=== PATIENT | female | born 1990 | race Caucasian/White ===

== ENCOUNTER → 2021-04-05 | Outpatient (CLI) | payer OTHER ==
[~2021-04-05] MED LIST: CYSTO-CONRAY II 17.2% 250ML VIAL (Q9958) As Ordered ONE
--- NOTE | 2021-04-05 17:02 | REP ---
INDICATION: RECURRENT UTI'S. COMPARISON: None. TECHNIQUE: [employer] film abdomen and pelvis, followed by cystography imaging. FINDINGS: [employer] film of abdomen and pelvis is unremarkable. Contrast is instilled into the bladder. The bladder is normal in position and smooth in contour with no mass impressions or intrinsic filling defects. An no time during filling or voiding is there radiographic evidence of vesicoureteral reflux. AP and oblique views are performed during voiding. A full postvoid image shows mild residual contrast in the bladder and, again, no evidence of vesicoureteral reflux. IMPRESSION: Negative voiding cystourethrogram. <Electronically signed by Isaiah Pink > 04/05/21 [id number]
== END ==
LOC: M RADPRO 14:31
PROVIDERS: ATTEND Nurse Practitioner Family
DX: N39.0 Urinary tract infection, site not specified (principal)
CPT/HCPCS: 51600; 74455; Q9958

== ENCOUNTER → 2021-07-05 | Outpatient (REF) | payer OTHER ==
[2021-07-05 13:50] LABS: APPEARANCE, URINE CLEAR (CLEAR); BACTERIA, URINE AUTO NEGATIVE (NEGATIVE); BILIRUBIN, URINE AUTO NEGATIVE (NEGATIVE); BLOOD, URINE BLOOD NEGATIVE (NEGATIVE); COLOR, URINE YELLOW (YELLOW); GLUCOSE, URINE (UA) AUTO NEGATIVE (NEGATIVE); KETONE, URINE AUTO NEGATIVE (NEGATIVE); LEUKOCYTE ESTERASE, URINE AUTO NEGATIVE (NEGATIVE); MUCUS, URINE SMALL (NEGATIVE); NITRITE, URINE AUTO NEGATIVE (NEGATIVE); PROTEIN, URINE AUTO 2+ mg/dL (NEGATIVE); RBC, URINE AUTO 0 /HPF (0-3); SPECIFIC GRAVITY URINE AUTO 1.012 (1.002-1.035); SQUAMOUS EPITHELIAL CELL UR AU 1 /HPF (0-6); UROBILINOGEN, URINE AUTO 0.2 mg/dL (0.0-2.0); WBC, URINE AUTO 1 /HPF (0-3)
== END ==
LOC: M SMT 13:12
PROVIDERS: ATTEND Nurse Practitioner Women's Health
DX: N39.0 Urinary tract infection, site not specified (principal)